=== PATIENT | female | born 1985 | race Caucasian/White ===

== ENCOUNTER → 2023-09-05 08:39 | Outpatient (REF) | payer OTHER, SELFPAY | LOC: HWRAD 08:39 | PROVIDERS: ATTENDING PHYSICIAN Physician Assistant Medical | DX: R10.84 Generalized abdominal pain (principal); Z80.0 Family history of malignant neoplasm of digestive organs | CPT/HCPCS: 76700 ==

== ENCOUNTER → 2024-04-05 15:34 | Outpatient (REF) | payer OTHER, SELFPAY | LOC: RAD 15:34 | PROVIDERS: ATTENDING PHYSICIAN Physician Assistant Medical | DX: J40 Bronchitis, not specified as acute or chronic (principal) | CPT/HCPCS: 71046 ==

== ENCOUNTER → 2024-11-04 13:57 | Outpatient (REF) | payer OTHER, SELFPAY | LOC: RAD 13:57 | PROVIDERS: ATTENDING PHYSICIAN Physician Assistant Medical | DX: M25.552 Pain in left hip (principal) | CPT/HCPCS: 73502 ==

== ENCOUNTER → 2025-01-19 09:27 | Outpatient (REF) | payer OTHER, SELFPAY | LOC: RCS 09:27 | PROVIDERS: ATTENDING PHYSICIAN Physician Assistant Medical | DX: R00.2 Palpitations (principal); R07.89 Other chest pain | CPT/HCPCS: 93225; 93226 ==

== ENCOUNTER → 2025-02-01 10:02 | Outpatient (REF) | payer OTHER, SELFPAY | LOC: HWRCS 10:02 | PROVIDERS: ATTENDING PHYSICIAN Physician Assistant Medical | DX: R00.2 Palpitations (principal); R07.89 Other chest pain | CPT/HCPCS: 93306 ==